=== PATIENT | male | born 1995 | race African-American/Black ===

== ENCOUNTER 2020-04-05 11:30 | Emergency (ER) | payer OTHER ==
[~2020-04-05] VITALS: Ht 172.7 cm; Wt 76.0 kg
[2020-04-05 12:48] LABS: BASOPHILS % 1.4 % (0.0-2.0); HEMATOCRIT. 43.9 % (42.0-52.0); HEMOGLOBIN. 14.7 g/dL (14.0-18.0); LYMPHOCYTES % 44.8 % (20.0-50.0); MEAN CORPUSCULAR HEMOGLOBIN 30.7 pg (28.0-32.0); MEAN CORPUSCULAR VOLUME 91.9 fL (80.0-94.0); MEAN PLATELET VOLUME 8.3 fl (7.4-10.4); MONOCYTES % 9.9 % (2.0-8.0); NEUTROPHILS % 36.9 % (40.0-76.0); PLATELET 187 x1000/uL (130-400); RED BLOOD CELL COUNT 4.78 mill/uL (4.7-6.1)
[2020-04-05 12:53] LABS: CHLORIDE 106 mEq/L (98-107)
[2020-04-05 12:58] LABS: ETHANOL BLOOD < 10 mg/dL
[2020-04-05 13:33] LABS: CLARITY URINE CLEAR (CLEAR); COLOR URINE YELLOW (YELLOW); KETONES URINE NEGATIVE (NEGATIVE); LEUKOCYTE ESTERASE URINE NEGATIVE (NEGATIVE); NITRITE URINE NEGATIVE (NEGATIVE); OCCULT BLOOD URINE NEGATIVE (NEGATIVE); PROTEIN URINE NEGATIVE (NEGATIVE); SPECIFIC GRAVITY URINE 1.027 (1.005-1.030)
[2020-04-05 14:26] LABS: *AMPHETAMINES SCREEN URINE PRESUMTIVE POSITIVE (NEGATIVE); *BARBITURATES SCREEN URINE NEGATIVE (NEGATIVE); *BENZODIAZEPINES SCREEN URINE NEGATIVE (NEGATIVE); *COCAINE SCREEN URINE NEGATIVE (NEGATIVE); METHADONE URINE SCREEN NEGATIVE (NEGATIVE); OPIATES URINE SCREEN NEGATIVE (NEGATIVE)
[2020-04-05 14:27] LABS: CANNABINOID URINE SCREEN PRESUMTIVE POSITIVE (NEGATIVE); PHENCYCLIDINE URINE SCREEN NEGATIVE (NEGATIVE)
[2020-04-06] MEDS ORDERED: SERTRALINE HCL 50MG TABLET PO SCH (07:45)
[2020-04-06] MEDS: QUETIAPINE FUMARATE 50MG TABLET PO SCH ×5 (07:45→21:00)
[2020-04-07] MEDS: SERTRALINE HCL 50MG TABLET PO SCH ×2 (09:07→09:10)
[2020-04-07] MEDS: QUETIAPINE FUMARATE 50MG TABLET PO SCH ×3 (09:07→18:06)
[2020-04-08] MEDS: QUETIAPINE FUMARATE 50MG TABLET PO SCH ×4 (09:00→17:41)
[2020-04-08] MEDS: SERTRALINE HCL 50MG TABLET PO SCH (12:07)
[2020-04-08 20:47] VITALS: BP 127/49
== END 2020-04-08 23:50 ==
LOC: ER 11:30
DX: R45.851 Suicidal ideations (principal); F20.9 Schizophrenia, unspecified; Z63.79 Other stressful life events affecting family and household; Z62.820 Parent-biological child conflict; F12.90 Cannabis use, unspecified, uncomplicated; F19.10 Other psychoactive substance abuse, uncomplicated; J45.909 Unspecified asthma, uncomplicated; F17.200 Nicotine dependence, unspecified, uncomplicated
CPT/HCPCS: 36415; 80053; 80305; 80320; 81003; 85025; 99285; Z7610; G0480

== ENCOUNTER 2020-05-18 16:44 | Emergency (ER) | payer OTHER ==
[~2020-05-18] VITALS: Ht 172.7 cm; Wt 60.0 kg
[2020-05-18 16:47] VITALS: BP 121/82
== END 2020-05-18 17:32 | disposition left against medical advice (07) ==
LOC: ER 16:44
DX: Z53.21 Procedure and treatment not carried out due to patient leaving prior to being seen by health care provider (principal)